=== PATIENT | female | born 1940 | race Hispanic/Latino ===

== ENCOUNTER → 2019-12-15 | Outpatient (CLI) | payer OTHER ==
[~2019-12-15] VITALS: Ht 144.8 cm; Wt 75.4 kg
[~2019-12-15] MED LIST: ASPI-556 PO; ATOR10TA69 PO; CHOL200013 PO; ENAL20TA18 PO; GABA600T10 PO; INUL1TAB4 PO; METO-408 PO; MULTIVITAMIN GUMMIES PO; OMEG1TAB4 PO; TRAM50TA4 PO; VENL-53 PO; VITAMIN C GUMMIES PO
[2019-12-15 11:22] VITALS: BP 136/75
[2019-12-15 17:57] LABS: BASOPHILS % (AUTO) 1.1 % (0.0-5.0); EOSINOPHILS % (AUTO) 3.6 % (0.0-8.0); HEMATOCRIT 40.4 % (36-48); MEAN CORPUSCULAR HEMOGLOBIN 29.8 pg (27.0-33.0); MEAN CORPUSCULAR HGB CONC 32.7 g/dL (32.0-36.0); MEAN CORPUSCULAR VOLUME 91.2 fL (79-99); MONOCYTES % (AUTO) 11.2 % (3.0-13.0); NEUTROPHILS % (AUTO) 51.7 % (40.0-77.0); PLATELET COUNT (AUTO) 282 K/uL (130-400); RED BLOOD CELL COUNT(AUTO) 4.43 MIL/uL (4.00-5.50); RED CELL DISTRIBUTION WIDTH 12.6 % (11.0-15.5); WHITE BLOOD COUNT (AUTO) 7.2 K/uL (4.8-10.8)
[2019-12-15 18:10] LABS: CREATININE 0.9 mg/dL (0.5-1.5); POTASSIUM 4.3 mmol/L (3.5-5.1)
== END | disposition home or self-care (01) ==
LOC: LAB 17:02 → EDSTATUS 12-19 07:45
PROVIDERS: ATTEND Neurological Surgery
DX: Z01.818 Encounter for other preprocedural examination (principal); Z11.59 Encounter for screening for other viral diseases
CPT/HCPCS: 36415; 80048; 85025; 93005; U0003

== ENCOUNTER → 2024-01-12 | Outpatient (CLI) | payer OTHER ==
[~2024-01-12] MED LIST changes: +ENAL-91 PO; -ENAL20TA18 PO
== END | disposition home or self-care (01) ==
LOC: RAH 09:25
PROVIDERS: ATTEND Family Medicine
DX: K76.0 Fatty (change of) liver, not elsewhere classified (principal); R10.13 Epigastric pain
CPT/HCPCS: 76700

== ENCOUNTER 2024-10-16 11:00 | Observation (INO) | payer OTHER ==
[~2024-10-16] VITALS: Ht 147.3 cm; Wt 81.0 kg
[~2024-10-16 11:00] MED LIST changes: -ASPI-556 PO; -CHOL200013 PO; -GABA600T10 PO; -INUL1TAB4 PO; -OMEG1TAB4 PO; -TRAM50TA4 PO; -VENL-53 PO; -VITAMIN C GUMMIES PO
[2024-10-16 13:10] LABS: BASOPHILS # (AUTO) 0.08 K/uL (0.00-0.20); BASOPHILS % (AUTO) 1.1 % (0.0-5.0); EOSINOPHILS # (AUTO) 0.31 K/uL (0.00-0.70); EOSINOPHILS % (AUTO) 4.4 % (0.0-8.0); HEMATOCRIT 36.8 % (36-48); IMMATURE GRANULOCYTE ABSOLUTE 0.03 K/uL (0-1); LYMPHOCYTES # (AUTO) 2.3 K/uL (1.0-4.8); LYMPHOCYTES % (AUTO) 32.9 % (21.0-51.0); MEAN CORPUSCULAR HEMOGLOBIN 29.6 pg (27.0-33.0); MEAN CORPUSCULAR HGB CONC 32.6 g/dL (32.0-36.0); MEAN CORPUSCULAR VOLUME 90.9 fL (79-99); MONOCYTES # (AUTO) 0.7 K/uL (0.1-1.0); MONOCYTES % (AUTO) 9.6 % (3.0-13.0); NEUTROPHILS # (AUTO) 3.7 K/uL (1.8-7.7); NEUTROPHILS % (AUTO) 51.6 % (40.0-77.0); PLATELET COUNT (AUTO) 252 K/uL (130-400); RED BLOOD CELL COUNT(AUTO) 4.05 MIL/uL (4.00-5.50); RED CELL DISTRIBUTION WIDTH 13.2 % (11.0-15.5); WHITE BLOOD COUNT (AUTO) 7.1 K/uL (4.8-10.8)
[2024-10-16 13:18] LABS: POTASSIUM 4.3 mmol/L (3.5-5.1)
[2024-10-16 13:20] LABS: INR 0.98 (0.85-1.15); PROTHROMBIN TIME 10.4 SEC (9.6-11.6)
[2024-10-16 13:22] LABS: PARTIAL THROMBOPLASTIN TIME 28.6 SEC (26.3-35.5)
[2024-10-16 13:23] LABS: APPEARANCE,URINE CLEAR (CLEAR); BILIRUBIN,URINE NEGATIVE (NEGATIVE); COLOR,URINE LIGHT-YELLOW (YELLOW); GLUCOSE, URINE (UA) NEGATIVE (NEGATIVE); KETONES,URINE NEGATIVE (NEGATIVE); LEUKOCYTE ESTERASE ,URINE 250 Leu/uL (NEGATIVE); NITRATE,URINE NEGATIVE (NEGATIVE); OCCULT BLOOD,URINE NEGATIVE (NEGATIVE); PH,URINE 6.5 (5.0-8.0); PROTEIN,URINE NEGATIVE (NEGATIVE); UROBILINOGEN,URINE 0.2 mg/dL (0.2-1.0)
[2024-10-16 13:24] LABS: ADD UA MICROSCOPIC YES
[2024-10-16 13:36] VITALS: BP 126/55; PULSE 57; RESP 15; TEMP 97.2
[2024-10-16 13:39] LABS: RBC,URINE 0-1 /HPF (0-1); SQUAMOUS EPITHELIAL CELL,UR FEW /HPF (0-2)
[2024-10-16] MEDS ORDERED: HAIR, SKIN, NAIL PO (14:24)
[2024-10-16] MEDS ORDERED: DULO60CA64 PO (14:24)
[2024-10-16] MEDS ORDERED: OMEP40CA21 PO (14:24)
[2024-10-16] MEDS ORDERED: GABA-529 PO (14:24)
[2024-10-16] MEDS ORDERED: SOLI5 PO (14:24)
[2024-10-16] MEDS ORDERED: AMLO-257 PO (14:24)
[2024-10-16] MEDS ORDERED: FAMO20TA8 PO (14:24)
[2024-10-16] MEDS ORDERED: CINNAMON PO (14:24)
[2024-10-16] MEDS ORDERED: B COMPLEX PO (14:24)
--- NOTE | 2024-10-16 14:27 | NUR ---
SMILEYOP JAMEEL GROVER INSTRUCTED PT ON INCENTIVE SPIROMETRY.
--- NOTE | 2024-10-16 14:47 | EKG ---
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
--- NOTE | 2024-10-18 12:50 | NUR ---
REPORT DR YE REVIEWED EKG AND PREVIOUS EKG. RECEIVED ORDERS TO REPEAT EKG IN AM
[2024-10-19] VITALS (27 sets, daily range): BP systolic 93–132; BP diastolic 45–73; PULSE 56–74; RESP 15–18; TEMP 97.1–98; O2SAT 99
[2024-10-19] MEDS ORDERED: ceFAZolin SODIUM 1 GM VIAL ONE ×2 (06:36→08:57)
[2024-10-19] MEDS ORDERED: VANCOMYCIN 500MG+NS 100ML 100 ML IV ONE (06:36)
[2024-10-19] MEDS ORDERED: ketaMINE 50MG/ML SYRINGE 50 MG/ML DISP.SYRIN ONE (07:02)
[2024-10-19] MEDS ORDERED: ROPivacaine 0.5% 5MG/ML 30ML ONE (07:02)
[2024-10-19] MEDS ORDERED: TRANEXAMIC ACID 1000MG/10ML ONE (07:05)
[2024-10-19] MEDS ORDERED: LIDOCAINE PF 100MG/5ML (2%) SYRINGE 5ML ONE (07:12)
[2024-10-19] MEDS ORDERED: FENTanyl CITRate PF 50 MCG/1 ML 2ML VIAL ONE (07:12)
[2024-10-19] MEDS ORDERED: rocuRONium bROMide 10MG/1ML 5ML VL ONE (07:12)
[2024-10-19] MEDS ORDERED: proPOFol 10 MG/ML 20ML VIAL IV ONE (07:12)
--- NOTE | 2024-10-19 08:41 | EKG ---
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
[2024-10-19] MEDS ORDERED: dexaMETHasone SOD PHOSPHATE 10MG/ML 1ML VIAL ONE (08:59)
[2024-10-19] MEDS ORDERED: NEOSTIGMINE METHYLSULFATE 1MG/ML IV ONE (08:59)
[2024-10-19] MEDS ORDERED: ondanSETRON 4MG INJ ONE (08:59)
[2024-10-19] MEDS ORDERED: GLYCOPYRROLATE 0.2 MG/ML 5 ML VIAL ONE ×2 (08:59→09:10)
[2024-10-19] MEDS ORDERED: ePHEDrine SULFate 50 MG/ML AMPULE ONE (09:11)
[2024-10-19] MEDS: ceFAZolin SODIUM 2 GM VIAL ONE (09:20)
[2024-10-19] MEDS ORDERED: ondanSETRON 4MG INJ IVP PRN (11:00)
[2024-10-19] MEDS ORDERED: HYDROcodone/APAP 5/325 1 TAB TABLET PO PRN (11:00)
[2024-10-19] MEDS ORDERED: TEMAZepam 15 MG CAPSULE PO PRN (11:00)
--- NOTE | 2024-10-19 11:04 | OP ---
Operative Note: DATE OF PROCEDURE: 10/19/24 SURGEON: TAMMY BENDER MD LICENSED MASSAGE PRACTITIONER: [Charlie Larios CFA] ANESTHESIA: [General anesthesia plus regional block] ANESTHESIOLOGIST/STUDENT COUNSELLOR: [Elizabeth Giles CRNA] PREOPERATIVE DIAGNOSIS: [Left knee patellofemoral subluxation] POSTOPERATIVE DIAGNOSIS: [Same, chronic synovitis] PROCEDURE: [Left knee arthrotomy, patellofemoral realignment, synovectomy, lateral retinacular release] ESTIMATED BLOOD LOSS: [Less than 50 mL] INDICATIONS: [The patient is an 84-year-old female with a history of a fall at the beginning of this month. She reported significant pain in the patellofemoral joint and the x-rays revealed the presence of a subluxation of the patellofemoral joint. 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 The patient is brought to the operating room for patellar realignment and evaluation of the subluxation. Procedure understood, risks, benefits and possible complications and agreed signed the consent form] DESCRIPTION OF PROCEDURE: [After adequate general anesthesia was achieved and regional block obtain the patient's left lower extremity was prepped and draped in the usual manner previous placement of the tourniquet in the proximal thigh. The extremity was elevated and exsanguinated with an Esmarch bandage tourniquet was inflated to 250 mmHg the Esmarch band being removed. An incision was carried down following the previous surgical scar through the skin followed by dissection of the thick subcutaneous tissue. A paramedian approach of the knee joint was then made following the medial patellar tendon retinaculum, medial retinaculum and quadriceps tendon. The retractors were applied and he was noted that the patella was completely cover and soft tissue and a lateral plate and retractors we noticed also that the patient had chronic synovitis which was excised with the use of the Bovie cautery. Then we proceeded to expose the patella and we proceeded to remove all the soft tissue that was covering the plasty component and after removal of this tissue we noted that the patient had some bone growing in the periphery of the component which we resected with the use of the rongeur and small osteotome. The tibial liner was normal and had no wear. The knee was stable in valgus and varus. It was noted that the patient's patellar component was round but it was of the same size as the patella. After this was cleaned we checked the patellofemoral tracking noticing to be slightly tilted and for this reason we proceeded with a lateral retinacular release which corrected the problem. We then proceeded to deflate the tourniquet an irrigate the joint with the antibiotic solution with jet lavage and after this was completed we proceeded then closed the wound with a approximation of the patellofemoral retinaculum with Ethibond sutures and using cinching type of stitches provide an adequate closure in this area. Then we proceeded to close the rest of the incision with # 1 Vicryl crossed stitches. The subcutaneous tissue was closed with 2-0 Monocryl inverted stitches and the skin was closed with 3-0 Monocryl subcuticularly. The wound was covered with a suction dressing.] TAMMY BENDER MD October 19, 2024 11:04
[2024-10-19] MEDS: 0.9%NACL 1000ML 1,000 ML IV ONE (11:37)
--- NOTE | 2024-10-19 17:00 | NUR ---
MET W PT AND FAMILY AT BEDSIDE FOR DC PLANNING. PT LIVES W SPOUSE AND SON/DAUGHTER IN LAW. IS INDEPENDENT IN ADLS, RELIES ON DAUGHTER FOR TRANSPORT. hAS A CANE. WALKER, AND SHOWER CHAIR. NO OTHER SERVICES. GOAL IS HOME WITH HOME HEALTH . ALENA SIGNED FOR [facility]. WILL SEND IN AM Addendum: 10/20/24 at 1144 by DAQUAN ROGERS RN Amended: Links added.
[2024-10-19] MEDS: ceFAZolin SODIUM 2 GM VIAL IVPB SCH (18:08)
[2024-10-19] MEDS: acetaMINOPHEN 325 MG TAB ONE (19:28)
[2024-10-19] MEDS: GABApentin 100 MG CAPSULE ONE ×2 (19:28→19:29)
[2024-10-19] MEDS: 0.9%NACL 1000ML 1,000 ML IV SCH (19:29)
[2024-10-19] MEDS: FAMOTIDINE 20MG VIAL IV ONE (19:29)
[2024-10-19] MEDS: ASPIRIN 81 MG EC TAB PO SCH (20:13)
[2024-10-19] MEDS: HYDROcodone/APAP 5/325 1 TAB TABLET PO PRN (20:13)
[2024-10-19] MEDS: oxyBUTYnin chloRIDE 5 MG TABLET PO SCH (20:14)
[2024-10-19] MEDS: GABApentin 100 MG CAPSULE PO SCH (20:14)
[2024-10-19] MEDS: FAMOTIDINE 20MG TAB PO SCH (20:14)
[2024-10-19] MEDS: ENALAPRIL MALEATE 10 MG TABLET PO SCH (20:15)
[2024-10-19] MEDS ORDERED: NON-FORMULARY MEDICATION 1 EACH (Enalapril Maleate 20 MG) PO SCH (21:00)
[2024-10-20] VITALS: BP 133/54; PULSE 79; RESP 18; TEMP 98
--- NOTE | 2024-10-20 02:06 | NUR ---
NURSE NOTE PATIENT WITH DAUGHTER AT BEDSIDE, POC DISCUSSED IN THE BEGINNING OF SHIFT. PATIENT AND DAUGHTER VOICED UNDERSTANDING. PATIENT HAS BEEN AMBULATING TO RESTROOM WITH WALKER, TOLERATING WELL WITH PRN PAIN MEDICATION , EDUCATED WARBLE SAW OPERATOR NAOMIE LIU, BED ALARM, VOICED UNDERSTANDING. INCENTIVE SPIROMETER AT BEDSIDE TOLERATED WELL. WILL CONTINUE TO MONITOR.
[2024-10-20 03:49] VITALS: BP 114/46; PULSE 72; RESP 18; TEMP 97.6
[2024-10-20 08:00] VITALS: BP 104/54; PULSE 62; RESP 18; TEMP 97.8
--- NOTE | 2024-10-20 08:05 | PN ---
Ortho postop day one. This morning patient is awake alert and oriented. Daughter is present in the room. The patient is seated in a chair enjoying her breakfast stating adequate pain control. Vital signs have remained stable. She is afebrile. Voiding on her own. Has not passed gas and is worried that she may need medical assistance with the us. States she has not had a bowel movement in three days. Requesting a laxative or stool softener be prescribed upon discharge. She is requesting pharmacy [facility] for her discharge. The dressing is intact. Distal neurovascular exam intact. Operative findings discussed with the patient. Anticipating going home with a Home Health. She is ambulating within the confines of her room pending therapy this morning. Discussed with the patient likely discharge today after therapy but we will defer this to case management for home health agency. Assessment: Status post left knee arthrotomy synovectomy patellofemoral joint realignment, lateral retinacular release. Plan: Continue with Dr. Gamboa protocol and discharge planning Vitals/Labs Vital Signs Date Time Temp Pulse Resp B/P (MAP) Pulse Ox O2 Delivery O2 Flow Rate FiO2 10/20/24 03:49 97.5 72 18 114/46 99 Room Air 10/19/24 19:15 0 21 Medications Current Medications Cefazolin Sodium 2 gm STK-MED ONCE .ROUTE Last administered on 10/19/24at 09:20; Start 10/19/24 at 06:27; Stop 10/19/24 at 06:27; Status DC Sodium Chloride 1,000 ml @ As Directed STK-MED ONCE IV Last administered on 10/19/24at 11:37; Start 10/19/24 at 06:27; Stop 10/19/24 at 06:27; Status DC Cefazolin Sodium 1 gm STK-MED ONCE .ROUTE; Start 10/19/24 at 06:36; Stop 10/19/24 at 06:36; Status DC Vancomycin HCl 100 ml @ As Directed STK-MED ONCE IV; Start 10/19/24 at 06:36; Stop 10/19/24 at 06:36; Status DC Gabapentin 100 mg STK-MED ONCE .ROUTE Last administered on 10/19/24at 19:28; Start 10/19/24 at 06:46; Stop 10/19/24 at 06:47; Status DC Acetaminophen 325 mg STK-MED ONCE .ROUTE; Start 10/19/24 at 06:46; Stop 10/19/24 at 06:47; Status DC Famotidine 20 mg STK-MED ONCE IV; Start 10/19/24 at 06:46; Stop 10/19/24 at 06:47; Status DC Gabapentin 100 mg STK-MED ONCE .ROUTE; Start 10/19/24 at 06:56; Stop 10/19/24 at 06:57; Status DC Ropivacaine 150 mg STK-MED ONCE .ROUTE; Start 10/19/24 at 07:02; Stop 10/19/24 at 07:02; Status DC Ketamine HCl 50 mg STK-MED ONCE .ROUTE; Start 10/19/24 at 07:02; Stop 10/19/24 at 07:02; Status DC Tranexamic Acid 1,000 mg STK-MED ONCE .ROUTE; Start 10/19/24 at 07:05; Stop 10/19/24 at 07:06; Status DC Lidocaine HCl 100 mg STK-MED ONCE .ROUTE; Start 10/19/24 at 07:12; Stop 10/19/24 at 07:12; Status DC Propofol 200 mg STK-MED ONCE IV; Start 10/19/24 at 07:12; Stop 10/19/24 at 07:12; Status DC Rocuronium [place] 50 mg STK-MED ONCE .ROUTE; Start 10/19/24 at 07:12; Stop 10/19/24 at 07:12; Status DC Fentanyl Citrate 100 mcg STK-MED ONCE .ROUTE; Start 10/19/24 at 07:12; Stop 10/19/24 at 07:12; Status DC Cefazolin Sodium 1 gm STK-MED ONCE .ROUTE; Start 10/19/24 at 08:57; Stop 10/19/24 at 08:58; Status DC Dexamethasone Sodium Phosphate 10 mg STK-MED ONCE .ROUTE; Start 10/19/24 at 08:59; Stop 10/19/24 at 08:59; Status DC Glycopyrrolate 1 mg STK-MED ONCE .ROUTE; Start 10/19/24 at 08:59; Stop 10/19/24 at 08:59; Status DC Neostigmine Methylsulfate 10 mg STK-MED ONCE IV; Start 10/19/24 at 08:59; Stop 10/19/24 at 08:59; Status DC Ondansetron HCl 4 mg STK-MED ONCE .ROUTE; Start 10/19/24 at 08:59; Stop 10/19/24 at 08:59; Status DC Glycopyrrolate 1 mg STK-MED ONCE .ROUTE; Start 10/19/24 at 09:10; Stop 10/19/24 at 09:10; Status DC Ephedrine Sulfate 50 mg STK-MED ONCE .ROUTE; Start 10/19/24 at 09:11; Stop 10/19/24 at 09:11; Status DC Sodium Chloride 1,000 ml @ 100 mls/hr Q10H IV Last administered on 10/19/24at 20:13; Start 10/19/24 at 11:00; Stop 10/20/24 at 04:22; Status DC Polyethylene Glycol 17 gm DAILY PO; Start 10/20/24 at 09:00; Stop 11/19/24 at 08:59 Bisacodyl 10 mg DAILY PRN RC; Start 10/22/24 at 11:00; Stop 11/21/24 at 10:59 Temazepam 15 mg HS PRN PO; Start 10/19/24 at 11:00; Stop 11/18/24 at 10:59 Ondansetron HCl 4 mg Q6H PRN IVP; Start 10/19/24 at 11:00; Stop 11/18/24 at 10:59 Cefazolin Sodium 2 gm Q8H IVPB Last administered on 10/20/24at 01:56; Start 10/19/24 at 17:30; Stop 10/20/24 at 01:31; Status DC Acetaminophen/ Hydrocodone Bitart Q4H PRN PO; Start 10/19/24 at 11:00; Stop 10/19/24 at 10:56; Status DC Aspirin 81 mg BID PO Last administered on 10/19/24at 20:13; Start 10/19/24 at 21:00; Stop 11/18/24 at 20:59 Acetaminophen/ Hydrocodone Bitart 1 tab Q4H PRN PO Last administered on 10/20/24at 01:56; Start 10/19/24 at 11:00; Stop 10/24/24 at 10:59 Acetaminophen/ Hydrocodone Bitart 2 tab Q4H PRN PO; Start 10/19/24 at 11:00; Stop 10/24/24 at 10:59 Amlodipine Besylate 5 mg DAILY PO; Start 10/20/24 at 09:00; Stop 11/19/24 at 08:59 Atorvastatin Calcium 10 mg DAILY PO; Start 10/20/24 at 09:00; Stop 11/19/24 at 08:59 Famotidine 20 mg HS PO Last administered on 10/19/24at 20:14; Start 10/19/24 at 21:00; Stop 11/18/24 at 20:59 Gabapentin 200 mg BID PO Last administered on 10/19/24at 20:14; Start 10/19/24 at 21:00; Stop 11/18/24 at 20:59 Metoprolol Succinate 25 mg AM PO; Start 10/20/24 at 09:00; Stop 11/19/24 at 08:59 Miscellaneous Medication 60 mg DAILY PO; Start 10/20/24 at 09:00; Stop 10/19/24 at 18:09; Status DC Miscellaneous Medication 20 mg BID PO; Start 10/19/24 at 21:00; Stop 10/19/24 at 18:09; Status DC Miscellaneous Medication 40 mg DAILY PO; Start 10/20/24 at 09:00; Stop 10/19/24 at 18:09; Status DC Miscellaneous Medication 5 mg DAILY PO; Start 10/20/24 at 09:00; Stop 10/19/24 at 18:09; Status DC Duloxetine HCl 60 mg DAILY PO; Start 10/20/24 at 09:00; Stop 11/19/24 at 08:59 Enalapril Maleate 20 mg BID PO Last administered on 10/19/24at 20:15; Start 10/19/24 at 21:00; Stop 11/18/24 at 20:59 Pantoprazole Sodium 40 mg DAILY PO; Start 10/20/24 at 09:00; Stop 11/19/24 at 08:59 Oxybutynin Chloride 5 mg BID PO Last administered on 10/19/24at 20:14; Start 10/19/24 at 21:00; Stop 11/18/24 at 20:59 CARIE RICHARD NP October 20, 2024 08:05
[2024-10-20] MEDS ORDERED: SOLIFENACIN SUCCINATE 5 MG PO SCH (09:00)
[2024-10-20] MEDS: amLODIPine 5 MG TAB PO SCH (09:00)
[2024-10-20] MEDS ORDERED: NON-FORMULARY MEDICATION 1 EACH (Omeprazole 40 MG) PO SCH (09:00)
[2024-10-20] MEDS: metOPROLol sucCINATE 25 MG TAB.SR.24H PO SCH (09:00)
[2024-10-20] MEDS ORDERED: NON-FORMULARY MEDICATION 1 EACH (Duloxetine HCl 60 MG) PO SCH (09:00)
[2024-10-20] MEDS: atorVAStatin 10 MG TABLET PO SCH (09:23)
[2024-10-20] MEDS: duloXETine HCL 30 MG CAP PO SCH (09:24)
[2024-10-20] MEDS: PANTOPrazole 40 MG TAB DR PO SCH (09:24)
[2024-10-20] MEDS: polyETHYLene GLYCol 3350 17 GM POWD.PACK PO SCH (09:57)
[2024-10-20] MEDS ORDERED: AEC81 PO (11:36)
[2024-10-20] MEDS ORDERED: HYDR-4060 PO (11:36)
--- NOTE | 2024-10-20 11:42 | NUR ---
DISCHARGE PT TO BE DISCHARGED AFTER SECOND ROUND OF PHYSICAL THERAPY PER DR. BENDER.
[2024-10-20 12:00] VITALS: BP 124/59; PULSE 69; RESP 18; TEMP 98.2
[2024-10-20] MEDS: HYDROcodone/APAP 5/325 1 TAB TABLET PO PRN (14:15)
--- NOTE | 2024-10-20 14:30 | NUR ---
[facility] REPORT GIVEN AT THIS TIME. SPOKE TO CAROLYN JEFF.
[2024-10-22] MEDS ORDERED: BisaCODYL 10 MG SUPP.RECT RC PRN (11:00)
== END 2024-10-20 16:20 | disposition home or self-care (01) ==
LOC: DAHIP 10-19 06:06 → INTOOBSV 10-19 06:06 → 4DH 10-19 13:38
PROVIDERS: ADMIT Orthopaedic Surgery; ATTEND Orthopaedic Surgery
DX: S83.092A Other subluxation of left patella, initial encounter (principal); T84.013A Broken internal left knee prosthesis, initial encounter; M25.362 Other instability, left knee; I12.9 Hypertensive chronic kidney disease with stage 1 through stage 4 chronic kidney disease, or unspecified chronic kidney disease; E11.22 Type 2 diabetes mellitus with diabetic chronic kidney disease; N18.9 Chronic kidney disease, unspecified; M19.90 Unspecified osteoarthritis, unspecified site; Z98.890 Other specified postprocedural states; Z79.899 Other long term (current) drug therapy; E78.5 Hyperlipidemia, unspecified; Z90.49 Acquired absence of other specified parts of digestive tract; Z90.710 Acquired absence of both cervix and uterus; W18.39XA Other fall on same level, initial encounter; Y93.89 Activity, other specified; Y92.89 Other specified places as the place of occurrence of the external cause; Y99.8 Other external cause status
CPT/HCPCS: 80048; 85025; 85610; 85730; 87086; 81001; 36415; 93005 ×2; 87641; 64447; 96365; 27447; 82948 ×4; 97161; 97116 ×3; 97530 ×4; 96366; G0378 ×25; A4649 ×5; A4223 ×2; A4663; J7030 ×2; J3490 ×6; J3010; J0690 ×5; J1100; J2003; J2704; J2405; J2710; J2795; J3370; A4930 ×2; C1776; A5120; A4215 ×2; A4222; A4221